=== PATIENT | male | born 1955 | race Caucasian/White ===

== ENCOUNTER 2016-11-28 09:25 | Observation (INO) | payer OTHER ==
[~2016-11-28] VITALS: Ht 175.3 cm; Wt 87.0 kg
[2016-11-28 09:27] VITALS: BP 114/66; PULSE 87; RESP 15; TEMP 98.2; O2SAT 96
[2016-11-28 09:32] VITALS: BP 131/79; PULSE 86; RESP 16; RESP 18; TEMP 98; O2SAT 96
[2016-11-28] MEDS ORDERED: SODIUM CHLORIDE 0.9% FLUSH 5 ML FLUSH IVF PRN (09:45)
[2016-11-28 09:47] VITALS: BP_SYST 110; BP_SYST 131; BP_DIAS 78; BP_DIAS 79; PULSE 86; RESP 18; O2SAT 96
[2016-11-28] MEDS ORDERED: ASPI1TAB69 PO (09:50)
[2016-11-28] MEDS ORDERED: ZOCO40TA PO (09:50)
[2016-11-28] MEDS ORDERED: LISI-515 PO (09:50)
[2016-11-28] MEDS ORDERED: ASPIRIN 81 MG CHEW TAB CHEW ONE (10:00)
[2016-11-28 10:01] LABS: AUTOMATED NEUTROPHIL # 3.8 TH/MM3 (1.8-7.7); BASOPHIL % 0.7 % (0.0-2.0); EOSINOPHIL # 0.2 TH/MM3 (0-0.4); EOSINOPHIL % 3.1 % (0.0-4.0); HEMO FLAGS DIFF FINAL; LYMPH % 28.9 % (9.0-44.0); LYMPHOCYTE # 1.9 TH/MM3 (1.0-4.8); MEAN CELL VOLUME 90.2 FL (80.0-100.0); MEAN CORPUSCULAR HEMOGLOBIN 32.2 PG (27.0-34.0); MEAN CORPUSCULAR HGB CONC 35.7 % (32.0-36.0); MONO % 9.3 % (0.0-8.0); PLATELET COUNT 204 TH/MM3 (150-450); RED BLOOD COUNT 4.99 MIL/MM3 (4.50-5.90); RED CELL DISTRIBUTION WIDTH 12.6 % (11.6-17.2); WHITE BLOOD COUNT 6.6 TH/MM3 (4.0-11.0)
--- NOTE | 2016-11-28 10:04 | PD ---
HPI Chief Complaint: Cardiac Complaint Time Seen by Provider: 09:40 Travel History International Travel<30 days: No Contact w/Intl Traveler<30days: No Traveled to known affect area: No History of Present Illness HPI 61-year-old male came to the emergency room with history of left-sided chest pain yesterday. 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 It was cold outside. He suddenly got left-sided dull ache that stopped him from doing everything and made him go back to his car and sat down for 10 minutes till the pain subsided. He has never had a pain like that before. No history of radiation of the pain. He did not get that pain again today but he had his regular doctors visited [place] and when he mentioned about the pain he asked him to come to the emergency room and be checked out. Patient was a heavy smoker for past 40 years and quit 4 months ago. Has strong family history of cardiac disease. His father in his 60s after suffering from multiple heart attacks. Patient has history of hypertension but well controlled. He has never had a stress test or any other workup for coronary artery disease. He says he is a regular walker and walks 2 miles a day. Vital signs were stable in the emergency room. Currently he is chest pain-free. FOR[facility]LY [facility] Past Medical History Narrative Medical List of his past medical history reviewed from the nursing note. Hx Anticoagulant Therapy: Yes (ASA 81 MG PO) Cardiovascular Problems: Yes (HBP, HIGH CHOLESTEROL) High Cholesterol: Yes Diminished Hearing: No Hypertension: Yes Tetanus Vaccination: > 5 Years Influenza Vaccination: No Past Surgical History Abdominal Surgery: Yes (HERNIA REPAIR) Social History Alcohol Use: No Tobacco Use: Yes (2 PACK PER DAILY) Substance Use: No Allergies-Medications (Allergen,Severity, Reaction): Coded Allergies: Erythromycin (Verified Allergy, Severe, Rash, 11/28/16) Comments List of his allergies reviewed from the nursing note. Reported Meds & Prescriptions Reported Meds & Active Scripts Active Reported Aspirin 81 Mg Tabdr 81 Mg PO DAILY Zocor (Simvastatin) 40 Mg Tab 40 Mg PO HS Lisinopril 20 Mg Tab 20 Mg PO DAILY Narrative Medication List of his home medications reviewed from the nursing note. Review of Systems Except as stated in HPI: all other systems reviewed are Neg Physical Exam Narrative GENERAL: Awake, alert, no obvious distress SKIN: Warm and dry. HEAD: Atraumatic. Normocephalic. EYES: Pupils equal and round. No scleral icterus. No injection or drainage. ENT: No nasal bleeding or discharge. Mucous membranes pink and moist. NECK: Trachea midline. No JVD. CARDIOVASCULAR: Regular rate and rhythm. No murmur appreciated. RESPIRATORY: No accessory muscle use. Coarse breath sounds. Breath sounds equal bilaterally. GASTROINTESTINAL: Abdomen soft, non-tender, nondistended. Hepatic and splenic margins not palpable. MUSCULOSKELETAL: No obvious deformities. No clubbing. No cyanosis. No edema. NEUROLOGICAL: Awake and alert. No obvious cranial nerve deficits. Motor grossly within normal limits. Normal speech. PSYCHIATRIC: Appropriate mood and affect; insight and judgment normal. Data Data Last Documented VS Vital Signs Date Time Temp Pulse Resp B/P Pulse Ox O2 Delivery O2 Flow Rate FiO2 11/28/16 09:47 86 18 131/79 96 Room Air 110/78 11/28/16 09:32 98.0 Orders Electrocardiogram (11/28/16 09:45) Basic Metabolic Panel (Bmp) (11/28/16 09:45) Ckmb (Isoenzyme) Profile (11/28/16 09:45) Complete Blood Count With Diff (11/28/16 09:45) Magnesium (Mg) (11/28/16 09:45) Prothrombin Time / Inr (Pt) (11/28/16 09:45) Act Partial Throm Time (Ptt) (11/28/16 09:45) Troponin I (11/28/16 09:45) Chest, Single Ap (11/28/16 09:45) Ecg Monitoring (11/28/16 09:45) Bilateral Bp Monitoring (11/28/16 09:45) Iv Access Insert/Monitor (11/28/16 09:45) Oximetry (11/28/16 09:45) Oxygen Administration (11/28/16 09:45) Sodium Chloride 0.9% Flush (Ns Flush) (11/28/16 09:45) Aspirin Chew (Aspirin Chew) (11/28/16 10:00) CKMB (11/28/16 09:52) CKMB% (11/28/16 09:52) Admit Order (Ed Use Only) (11/28/16 10:39) Labs Laboratory Tests Test 11/28/16 09:52 White Blood Count 6.6 TH/MM3 Red Blood Count 4.99 MIL/MM3 Hemoglobin 16.1 GM/DL Hematocrit 45.0 % Mean Corpuscular Volume 90.2 FL Mean Corpuscular Hemoglobin 32.2 PG Mean Corpuscular Hemoglobin 35.7 % Concent Red Cell Distribution Width 12.6 % Platelet Count 204 TH/MM3 Mean Platelet Volume 7.0 FL Neutrophils (%) (Auto) 58.0 % Lymphocytes (%) (Auto) 28.9 % Monocytes (%) (Auto) 9.3 % Eosinophils (%) (Auto) 3.1 % Basophils (%) (Auto) 0.7 % Neutrophils # (Auto) 3.8 TH/MM3 Lymphocytes # (Auto) 1.9 TH/MM3 Monocytes # (Auto) 0.6 TH/MM3 Eosinophils # (Auto) 0.2 TH/MM3 Basophils # (Auto) 0.0 TH/MM3 CBC Comment DIFF FINAL Differential Comment Prothrombin Time 11.4 SEC Prothromb Time International 1.0 RATIO Ratio Activated Partial 26.4 SEC Thromboplast Time Sodium Level 138 MEQ/L Potassium Level 3.9 MEQ/L Chloride Level 103 MEQ/L Carbon Dioxide Level 25.9 MEQ/L Anion Gap 9 MEQ/L Blood Urea Nitrogen 15 MG/DL Creatinine 1.03 MG/DL Estimat Glomerular Filtration 73 ML/MIN Rate Random Glucose 107 MG/DL Calcium Level 8.9 MG/DL Magnesium Level 2.0 MG/DL Total Creatine Kinase 169 U/L Creatine Kinase MB 2.3 NG/ML Troponin I LESS THAN 0.02 NG/ML MDM Medical Decision Making Medical Screen Exam Complete: Yes Emergency Medical Condition: Yes Medical Record Reviewed: Yes Interpretation(s) Twelve-lead EKG was reviewed by me. Normal sinus rhythm, normal axis, nonspecific ST-T wave changes. Heart rate of 84 bpm. Differential Diagnosis ACS, non-STEMI, nonspecific chest pain Narrative Course 10:03 AM patient was given 2 baby aspirins. Awaiting for the blood test results of the chest x-ray to be done and resulted. Patient does qualify for a chest pain center workup to rule out ACS given his high risk factors. I've discussed this with him and he is agreeable to it. If all the blood test results come back to be within normal limits patient will be admitted to the chest pain center. Procedures EKG Prior to Arrival: Yes Diagnosis Primary Impression: Chest pain Qualified Code: R07.9 - Chest pain, unspecified type Admitting Information Admitting Physician Requests: Observation Elijah Watters MD Nov 28, 2016 10:04 Elijah Watters MD Nov 28, 2016 10:04
[2016-11-28 10:09] LABS: APTT (PATIENT) 26.4 SEC (24.3-30.1); PROTHROMBIN TIME - PATIENT 11.4 SEC (9.8-11.6)
[2016-11-28 10:16] LABS: ANION GAP 9 MEQ/L (5-15); BICARBONATE 25.9 MEQ/L (21.0-32.0); BLOOD UREA NITROGEN 15 MG/DL (7-18); CHLORIDE 103 MEQ/L (98-107); GLOMERULAR FILTRATION RATE 73 ML/MIN (>89); POTASSIUM 3.9 MEQ/L (3.5-5.1); SODIUM (NA) 138 MEQ/L (136-145)
[2016-11-28 10:21] LABS: CREATINE KINASE 169 U/L (39-308)
[2016-11-28 10:33] LABS: CKMB 2.3 NG/ML (0.5-3.6)
--- NOTE | 2016-11-28 10:41 | RADRPT ---
EXAM DATE/TIME: 11/28/2016 10:03 [facility] COMPARISON: No previous studies available for comparison. INDICATIONS : Chest pain with left side. MEDICAL HISTORY : None. SURGICAL HISTORY : None. ENCOUNTER: Initial ACUITY: 1 day PAIN SCORE: 8/10 LOCATION: Left chest FINDINGS: A single view of the chest demonstrates the lungs to be symmetrically aerated without evidence of mas s, infiltrate or effusion. The cardiomediastinal contours are unremarkable. Osseous structures are intact. CONCLUSION: No acute disease. Bunny Ballard MD on November 28, 2016 at 10:39 Board Certified Radiologist. This report was verified electronically.
[2016-11-28] MEDS ORDERED: NITROGLYCERIN 0.4 MG SL 25 TABS/BTL SL PRN (11:00)
[2016-11-28] MEDS ORDERED: ACETAMINOPHEN 500 MG CPLT PO PRN (11:00)
[2016-11-28] MEDS ORDERED: ONDANSETRON HCL 4 MG/2 ML VIAL IV PRN (11:00)
--- NOTE | 2016-11-28 11:00 | EKG ---
Date Performed: 11/28/2016 Time Performed: 09:34:48 PTAGE: 61 years EKG: Sinus rhythm NONSPECIFIC T-WAVE ABNORMALITY BORDERLINE ECG NO PREVIOUS TRACING DOCTOR: Darius Moran Interpretating Date/Time 11/28/2016 10:59:48
[2016-11-28 11:18] VITALS: O2SAT 96
[2016-11-28 11:25] VITALS: BP 118/76
[2016-11-28 12:33] VITALS: BP 106/61; PULSE 67; RESP 16; TEMP 97; O2SAT 96
--- NOTE | 2016-11-28 14:09 | MH ---
cc: ANTHONY GRAY MD DATE OF ADMISSION: 11/28/2016 DATE OF 1955 CHIEF COMPLAINT Chest pain. 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 It happened while he was laughing. Occasional left anterior chest, severity was 3/10. There was no radiation. Duration was approximately 10-15 minutes. No associated symptoms. No known precipitating factors or relieving factors. He has never had chest discomfort like this before. The pain gradually went away. PAST MEDICAL HISTORY Hyperlipidemia. Hypertension. PAST SURGICAL HISTORY Hernia repair in 2011. FAMILY HISTORY Brother had a heart attack at age 45. Father at 67; prior to that he had multiple heart attacks, age unknown and mother is still alive and well at age 87. SOCIAL HISTORY He works part-time, is semi-retired. He quit smoking 3-1/2 months ago; prior to that he smoked two packs of cigarettes daily for approximately 22 years. He is currently using vapor cigarettes. Denies any alcohol or illegal drug use. CARDIAC RISK FACTORS Does have known hypertension and hyperlipidemia. This is medically managed on medication. No known diabetes. He is active and walks two miles daily and uses a rowing machine twice daily. PAST CARDIAC TESTING None. PRIMARY CARE PROVIDER At [facility]. He [place] seen and [place] [facility] this morning who he told about his chest discomfort and was advised to come to the hospital for further evaluation. ALLERGIES He is allergic to ERYTHROMYCIN. CURRENT MEDICATIONS 1. Lisinopril 20 mg daily. 2. Zocor 40 mg q.h.s. 3. Aspirin 81 mg daily. REVIEW OF SYSTEMS General: States he has been in general state of health with no recent illness, fevers, chills, night sweats, malaise, recent travel. HEENT: No headache or visual changes. No dysphagia. Cardiovascular: No current chest pain other than episode as mentioned above. No palpitations, intermittent leg pain or dizziness. Respiratory: No shortness of breath, cough, wheeze. Abdomen: No change in appetite, diarrhea, constipation, pain, distension, blood in stool or dark stool, nausea or vomiting or bowel change. : No dysuria, urgency, frequency or hematuria. Extremities: No lower leg edema or pain. Musculoskeletal: No change in ROM, no discomfort. Neuro: No difficulty with balance, motor or sensory deficit, loss of consciousness, change in memory. Psych: No anxiety or depression. Skin: No rashes or concerning lesions. PHYSICAL EXAMINATION Vital Signs: Temperature 98, pulse 86, respiratory 16, blood pressure 131/79 and 96% on room air. General: He is alert, well-nourished, well-developed, in no acute distress. A pleasant male. Head: Normocephalic, atraumatic. Eyes: Sclerae clear. Pupils are equal and round. Neck: Supple. Trachea is midline. Cardiovascular: He has a regular rate and rhythm without murmur, rub or gallop. S1-S2. No S3. No S4. Respiratory: No crackles, wheeze or rhonchi. Nonlabored. Symmetrical chest rise. No use of accessory muscles. Abdomen: Soft, nontender, nondistended. No masses. Positive bowel tones. Back: No scoliosis. Extremities: Pulses +2 x 4. No dependent edema. Musculoskeletal: Normal tone x 4, nontender. No obvious deformities. Neuro: CN II-XII grossly intact. Motor strength 5/5. Psych: Alert and oriented x 3. Has a pleasant affect. Appropriate mood, insight and judgment. Skin: Normal turgor, normal texture. Warm and dry. No rashes or lesions. LABORATORY CBC is unremarkable. Chemistry is unremarkable. First set of cardiac enzymes - troponin - negative. Coagulation is unremarkable. CHEST X-RAY Read by radiologist has a conclusion of no acute disease. EKGS The first EKG shows a normal sinus rhythm with a nonspecific T-wave abnormality. ASSESSMENT AND PLAN 1. Chest pain. Patient has been admitted to the Chest Pain Center. He has been ordered three sets of EKGs and cardiac enzymes. He will be seen and evaluated by Dr. Anthony Gray. Discussed the likelihood with the patient that he will have a stress test most likely this afternoon. He is agreeable to this plan of care. Naturally, if his stress test is unremarkable, he will be later discharged this afternoon. The patient is agreeable to this plan of care. 2. Hypertension. Will reorder his home-going medications as previously scheduled and continue to monitor. 3. Dyslipidemia. Will reorder his Zocor. Dictated by: SHYLA Aldrich MD JUDI King/SSB /12:44 PM /2:10 PM
--- NOTE | 2016-11-28 14:23 | HHI.DCPOC ---
Discharge Care Plan Diagnosis: (1) Atypical chest pain Goals to Promote Your Health * To prevent worsening of your condition and complications * To maintain your health at the optimal level Directions to Meet Your Goals Take your medications as prescribed Follow your dietary instruction Follow activity as directed Keep your appointments as scheduled Take your immunizations and boosters as scheduled If your symptoms worsen call your PCP, if no PCP go to Urgent Care Center or Emergency Room Smoking is Dangerous to Your Health. Avoid second hand smoke Call the 24-hour hour crisis hotline for domestic abuse at Valery Barnes Nov 28, 2016 14:23
[2016-11-28 14:34] LABS: CREATINE KINASE 166 U/L (39-308)
[2016-11-28] MEDS ORDERED: SODIUM CHLORIDE 0.9% FLUSH 5 ML FLUSH IVF SCH (21:00)
--- NOTE | 2016-11-29 08:38 | TR ---
Date Performed: 11/28/2016 Time Performed: 13:47:02 DOCTOR: Anthony Gray DRUG LIST: CLINICAL HISTORY: CHEST PAIN REASON FOR TEST: Chest pain REASON FOR ENDING: OBSERVATION: CONCLUSION: Jerel protocol completed. Stopped sec to reaching target heart rate and leg fatigue. Maximum EV=660 % Max HR Achieved=84.0 Maximum EY=477/70 Total Exercise Time=6:05. No reprod chest pa in/discomfort. No st segment changes to sugg ischemia. Mild sob at peak. Normal bp response. Recover y quick and unremarkable. COMMENTS: Patient exercised using the Jerel protocol. No electrocardiographic changes were seen to suggest ischemia. Hemodynamic response to exercise was normal. No significant arrhythmia was prese nt.
[2016-11-29] MEDS ORDERED: ASPIRIN 325 MG TAB PO SCH (09:00)
== END 2016-11-28 15:27 | disposition home or self-care (01) ==
LOC: NEPA 09:25 → NEDA 10:40 → NEPFCDU 11:35
PROVIDERS: ADMIT Internal Medicine Cardiovascular Disease; ATTEND Internal Medicine Cardiovascular Disease
DX: R07.89 Other chest pain (principal); I10 Essential (primary) hypertension; E78.5 Hyperlipidemia, unspecified; R94.31 Abnormal electrocardiogram [ECG] [EKG]; E78.00 Pure hypercholesterolemia, unspecified; Z72.0 Tobacco use; Z82.49 Family history of ischemic heart disease and other diseases of the circulatory system
CPT/HCPCS: 71010; 80048; 82550; 82552; 83735; 84484; 85025; 85610; 85730; 93005; 93017; 99285; G0378